=== PATIENT | female | born 1945 | race Two or more races ===

== ENCOUNTER 2017-12-02 14:58 | Outpatient (CLI) | payer OTHER | END 2017-12-02 15:15 | disposition home or self-care (01) | LOC: MAMO-SONO 14:58 | DX: Z12.31 Encounter for screening mammogram for malignant neoplasm of breast (principal); Z87.898 Personal history of other specified conditions; N60.11 Diffuse cystic mastopathy of right breast; N60.12 Diffuse cystic mastopathy of left breast ==

== ENCOUNTER 2018-11-05 13:47 | Emergency (ER) | payer OTHER ==
[~2018-11-05] VITALS: Ht 157.5 cm; Wt 63.5 kg
[2018-11-05] MEDS ORDERED: TOPROL XL25 M1 (14:32)
[2018-11-05] MEDS ORDERED: PRILOSEC10 MG (14:33)
[2018-11-05] MEDS ORDERED: ZOCOR5 MG (14:34)
== END 2018-11-05 21:51 | disposition home or self-care (01) ==
LOC: ER 13:47
DX: K29.70 Gastritis, unspecified, without bleeding (principal); M94.0 Chondrocostal junction syndrome [Tietze]; F06.4 Anxiety disorder due to known physiological condition; R07.89 Other chest pain

== ENCOUNTER 2019-08-08 08:30 | Outpatient (CLI) | payer OTHER ==
[~2019-08-08 08:30] MED LIST: PRILOSEC10 MG; TOPROL XL25 M1; ZOCOR5 MG
== END 2019-08-08 08:39 | disposition home or self-care (01) ==
LOC: MAMO-SONO 08:30
DX: Z12.31 Encounter for screening mammogram for malignant neoplasm of breast (principal); Z87.898 Personal history of other specified conditions; N63.10 Unspecified lump in the right breast, unspecified quadrant; N63.20 Unspecified lump in the left breast, unspecified quadrant

== ENCOUNTER 2020-06-22 15:27 | Emergency (ER) | payer OTHER ==
[~2020-06-22] VITALS: Ht 165.1 cm; Wt 59.0 kg
== END 2020-06-22 20:44 | disposition home or self-care (01) ==
LOC: ER 15:27
DX: S29.011A Strain of muscle and tendon of front wall of thorax, initial encounter (principal); R07.89 Other chest pain; X50.0XXA Overexertion from strenuous movement or load, initial encounter; Y93.H2 Activity, gardening and landscaping; Y92.017 Garden or yard in single-family (private) house as the place of occurrence of the external cause; Y99.8 Other external cause status

== ENCOUNTER 2021-12-30 20:44 | Emergency (ER) | payer OTHER ==
[~2021-12-30] VITALS: Ht 121.9 cm; Wt 44.5 kg
== END 2021-12-31 07:26 | disposition designated cancer center or children's hospital (05) ==
LOC: ER 20:44
DX: I44.1 Atrioventricular block, second degree (principal); R55 Syncope and collapse; I10 Essential (primary) hypertension; Z20.822 Contact with and (suspected) exposure to COVID-19

== ENCOUNTER 2025-09-08 13:45 | Emergency (ER) | payer OTHER ==
[~2025-09-08] VITALS: Ht 162.6 cm; Wt 54.4 kg
[2025-09-08] MEDS ORDERED: IBU600 MG PO (19:09)
== END 2025-09-08 22:05 | disposition home or self-care (01) ==
LOC: ER 13:45
DX: S39.82XA Other specified injuries of lower back, initial encounter (principal); Y93.89 Activity, other specified; E03.8 Other specified hypothyroidism; I10 Essential (primary) hypertension; Z95.0 Presence of cardiac pacemaker; G30.8 Other Alzheimer's disease; F02.80 Dementia in other diseases classified elsewhere, unspecified severity, without behavioral disturbance, psychotic disturbance, mood disturbance, and anxiety; W01.0XXA Fall on same level from slipping, tripping and stumbling without subsequent striking against object, initial encounter; Y92.018 Other place in single-family (private) house as the place of occurrence of the external cause